=== PATIENT | female | born 1975 | race Asian ===

== ENCOUNTER 2018-11-11 22:41 | Emergency (ER) | payer OTHER ==
[~2018-11-11] VITALS: Ht 165.1 cm; Wt 61.7 kg
[~2018-11-11 22:41] MED LIST: DALMANE15 MG; LORAZEPAM0.5 MG; PAROXETINE HCL20 MG; SEROQUEL300 MG
[2018-11-12] MEDS ORDERED: CEFUROXIME500 MG PO (04:42)
[2018-11-12] MEDS ORDERED: PYRIDIUM DS200 MG PO (04:42)
[2018-11-12] MEDS ORDERED: KETO10TA2 PO (04:42)
== END 2018-11-12 05:05 | disposition home or self-care (01) ==
LOC: ER 22:41
DX: N39.0 Urinary tract infection, site not specified (principal); B96.29 Other Escherichia coli [E. coli] as the cause of diseases classified elsewhere

== ENCOUNTER 2019-03-15 13:24 | Outpatient (CLI) | payer OTHER ==
[~2019-03-15 13:24] MED LIST changes: +CEFUROXIME500 MG PO; +KETO10TA2 PO; +PYRIDIUM DS200 MG PO
== END 2019-03-15 13:37 | disposition home or self-care (01) ==
LOC: MAMO-SONO 13:24
DX: N64.4 Mastodynia (principal)